=== PATIENT | female | born 1950 | race Caucasian/White ===

== ENCOUNTER 2016-06-03 11:21 | Outpatient (CLI) | payer OTHER, MEDICARE ==
[2016-06-16] MEDS ORDERED: AMANTADINE100 MG PO (11:06)
[2016-06-16] MEDS ORDERED: AZILECT1 MG PO (11:07)
[2016-06-16] MEDS ORDERED: ATENOLOL100 MG PO (11:07)
[2016-06-16] MEDS ORDERED: SINEMET1 TA2 PO (11:08)
[2016-06-16] MEDS ORDERED: CARBIDOPA/LEVOD1 TA5 PO (11:09)
[2016-06-16] MEDS ORDERED: OMEPRAZOLE20 M1 PO (11:11)
[2016-06-16] MEDS ORDERED: ROPINIROLE HCL3 MG PO (11:12)
[2016-06-16] MEDS ORDERED: VITAMIN D-31000 UNIT PO (14:08)
[2016-06-16] MEDS ORDERED: MULTIPLE VITAMIN PO (14:09)
[2016-06-16] MEDS ORDERED: FISH OIL1000 M1 PO (14:09)
[2016-06-16] MEDS ORDERED: VITAMIN B12500 MCG PO (14:09)
== END 2016-06-03 23:00 ==
LOC: LAB SRH 11:21
DX: R19.7 Diarrhea, unspecified (principal)

== ENCOUNTER 2016-06-04 10:52 | Outpatient (CLI) | payer OTHER, MEDICARE ==
[2016-06-16] MEDS ORDERED: AMANTADINE100 MG PO (11:06)
[2016-06-16] MEDS ORDERED: AZILECT1 MG PO (11:07)
[2016-06-16] MEDS ORDERED: ATENOLOL100 MG PO (11:07)
[2016-06-16] MEDS ORDERED: SINEMET1 TA2 PO (11:08)
[2016-06-16] MEDS ORDERED: CARBIDOPA/LEVOD1 TA5 PO (11:09)
[2016-06-16] MEDS ORDERED: OMEPRAZOLE20 M1 PO (11:11)
[2016-06-16] MEDS ORDERED: ROPINIROLE HCL3 MG PO (11:12)
[2016-06-16] MEDS ORDERED: VITAMIN D-31000 UNIT PO (14:08)
[2016-06-16] MEDS ORDERED: FISH OIL1000 M1 PO (14:09)
[2016-06-16] MEDS ORDERED: MULTIPLE VITAMIN PO (14:09)
[2016-06-16] MEDS ORDERED: VITAMIN B12500 MCG PO (14:09)
== END 2016-06-04 23:00 ==
LOC: LAB SRH 10:52
DX: R19.7 Diarrhea, unspecified (principal)
CPT/HCPCS: 90112; 90124; 90455; 99784